=== PATIENT | male | born 1960 | race Caucasian/White ===

== ENCOUNTER 2020-12-04 10:33 | Outpatient (CLI) | payer OTHER, SELFPAY ==
--- NOTE | 2020-12-04 10:42 | XR_ITS ---
WS: [id number] LUMBAR SPINE TECHNIQUE: 3 views of the lumbar spine CLINICAL INFORMATION: BACK PAIN COMPARISON: None. FINDINGS: S1 is partially lumbarized. 5 nonrib-bearing lumbar vertebral bodies. Mild lumbar curve convex left. No acute compression fractures. Disc space narrowing worse at L5-S1. Anterior hypertrophic changes in the lower lumbar spine. Moderate facet arthropathy L5-S1 and S1-S2. No acute compression fractures. Moderate spondylitic changes lumbar spine. Mild aortic calcification. XR/XR lumbar spine 2-3V* [id number] IMPRESSION: 1. 5 nonrib-bearing lumbar vertebral bodies with partially lumbarized S1 segme nt. Recommend plain film correlation prior to surgical intervention. 2. Mild lumbar curve convex left. No acute compression fractures. 3. Disc space narrowing worse at L5-S1. 4. Anterior hypertrophic changes lower lumbar spine. 5. Moderate facet arthropathy L5-S1 and S1-S2
== END 2020-12-04 10:34 | disposition home or self-care (01) ==
PROVIDERS: Visit Provider Dermatology
DX: M54.5 Low back pain (principal); M47.817 Spondylosis without myelopathy or radiculopathy, lumbosacral region; M47.818 Spondylosis without myelopathy or radiculopathy, sacral and sacrococcygeal region
CPT/HCPCS: 72100